=== PATIENT | female | born 1995 | race Hispanic/Latino ===

== ENCOUNTER 2021-11-25 19:49 | Inpatient (IN) | payer SELFPAY ==
[~2021-11-25] VITALS: Ht 147.3 cm; Wt 53.1 kg
[2021-11-25] MEDS ORDERED: MORPHINE 4 MG SYG IVP ONE (21:30)
[2021-11-25] MEDS ORDERED: CEFAZOLIN SODIUM 1 GM VIAL IVP SCH (21:30)
[2021-11-25] MEDS ORDERED: 0.9%NACL 1000ML 1,000 ML IV ONE (21:30)
[2021-11-25] MEDS ORDERED: ONDANSETRON 4MG INJ IVP ONE (21:30)
[2021-11-25] MEDS ORDERED: TETANUS/DIPHTHERIA TOXOID [ADULT] 0.5 ML VIAL IM ONE (22:00)
[2021-11-25 22:04] LABS: BASOPHILS % (AUTO) 0.6 % (0.0-5.0); EOSINOPHILS % (AUTO) 0.7 % (0.0-8.0); HEMATOCRIT 37.3 % (36-48); LYMPHOCYTES % (AUTO) 20.8 % (21.0-51.0); MEAN CORPUSCULAR HEMOGLOBIN 30.2 pg (27.0-33.0); MEAN CORPUSCULAR HGB CONC 33.8 g/dL (32.0-36.0); MEAN CORPUSCULAR VOLUME 89.4 fL (79-99); MONOCYTES % (AUTO) 14.9 % (3.0-13.0); NEUTROPHILS % (AUTO) 62.6 % (40.0-77.0); PLATELET COUNT (AUTO) 358 K/uL (130-400); RED BLOOD CELL COUNT(AUTO) 4.17 MIL/uL (4.00-5.50); RED CELL DISTRIBUTION WIDTH 12.5 % (11.0-15.5); WHITE BLOOD COUNT (AUTO) 10.8 K/uL (4.8-10.8)
[2021-11-25 22:20] LABS: BILIRUBIN,TOTAL 0.7 mg/dL (0.2-1.0); CREATININE 0.6 mg/dL (0.5-1.5); TOTAL PROTEIN, SERUM 7.8 g/dL (6.0-8.3)
[2021-11-25 22:27] LABS: POTASSIUM 2.9 mmol/L (3.5-5.1)
[2021-11-26] VITALS (22 sets, daily range): BP systolic 101–145; BP diastolic 54–74
[2021-11-26] MEDS ORDERED: ACETAMINOPHEN 325 MG TAB PO PRN ×2
[2021-11-26] MEDS ORDERED: ONDANSETRON 4MG INJ IV PRN
[2021-11-26 02:45] LABS: APPEARANCE,URINE Clear (CLEAR); BILIRUBIN,URINE Negative (NEGATIVE); COLOR,URINE Yellow (YELLOW); GLUCOSE, URINE (UA) Negative (NEGATIVE); KETONES,URINE 40 mg/dL (NEGATIVE); LEUKOCYTE ESTERASE ,URINE Negative (NEGATIVE); NITRATE,URINE Negative (NEGATIVE); OCCULT BLOOD,URINE Negative (NEGATIVE); PROTEIN,URINE Negative (NEGATIVE); UROBILINOGEN,URINE 0.2 mg/dL (0.2-1.0)
[2021-11-26 02:47] LABS: HCG,QUAL RESULT NEGATIVE (NEGATIVE)
[2021-11-26] MEDS: MORPHINE 2 MG SYG IV PRN ×2 (03:13→11:59)
[2021-11-26] MEDS ORDERED: POTASSIUM CHLORIDE 10% ELIXIR 20 MEQ/15 ML UDCUP PO PRN (05:00)
[2021-11-26] MEDS ORDERED: KCL 20 MEQ ERTAB PO PRN (05:00)
[2021-11-26 06:10] LABS: BASOPHILS % (AUTO) 0.5 % (0.0-5.0); EOSINOPHILS % (AUTO) 0.6 % (0.0-8.0); HEMATOCRIT 34.3 % (36-48); LYMPHOCYTES % (AUTO) 21.1 % (21.0-51.0); MEAN CORPUSCULAR HEMOGLOBIN 30.3 pg (27.0-33.0); MEAN CORPUSCULAR HGB CONC 33.5 g/dL (32.0-36.0); MEAN CORPUSCULAR VOLUME 90.3 fL (79-99); MONOCYTES % (AUTO) 12.8 % (3.0-13.0); NEUTROPHILS % (AUTO) 64.6 % (40.0-77.0); PLATELET COUNT (AUTO) 288 K/uL (130-400); RED CELL DISTRIBUTION WIDTH 12.4 % (11.0-15.5); WHITE BLOOD COUNT (AUTO) 11.2 K/uL (4.8-10.8)
[2021-11-26 06:21] LABS: INR 1.06 (0.85-1.15); PROTHROMBIN TIME 11.5 SEC (9.6-11.6)
[2021-11-26 06:22] LABS: PARTIAL THROMBOPLASTIN TIME 27.5 SEC (26.3-35.5)
[2021-11-26 06:37] LABS: ALBUMIN 3.5 g/dL (3.5-5.0); CREATININE 0.6 mg/dL (0.5-1.5); POTASSIUM 3.3 mmol/L (3.5-5.1); TOTAL PROTEIN, SERUM 6.8 g/dL (6.0-8.3)
[2021-11-26] MEDS: LIDOCAINE HCL-MPF 1% 2ML VIAL IV PRN ×2 (06:48→18:49)
[2021-11-26] MEDS: POTASSIUM CHLORIDE 20MEQ/100ML 100 ML IV PRN ×2 (06:49→18:48)
[2021-11-26] MEDS: FAMOTIDINE 20MG VIAL IV SCH ×2 (08:07→20:34)
[2021-11-26] MEDS ORDERED: ROCURONIUM 10MG/1ML SYR 10 MG/ML ML ONE (15:43)
[2021-11-26] MEDS ORDERED: LIDOCAINE PF 100MG/5ML (2%) SYRINGE 5ML ONE (15:43)
[2021-11-26] MEDS ORDERED: SUCCINYLCHOLINE CHLORIDE 20 MG/ML 10 ML VIAL ONE (15:43)
[2021-11-26] MEDS ORDERED: MIDAZOLAM HCL 1 MG/ML 2ML VIAL ONE (15:43)
[2021-11-26] MEDS ORDERED: FENTANYL CITRATE PF 50 MCG/1 ML 2ML VIAL ONE (15:43)
[2021-11-26] MEDS ORDERED: PROPOFOL 10 MG/ML 20ML VIAL IV ONE (15:43)
[2021-11-26] MEDS ORDERED: CEFAZOLIN SODIUM 2 GM VIAL IV ONE (16:00)
[2021-11-26] MEDS ORDERED: ROPIVACAINE 0.5% 5MG/ML 30ML IJ ONE (16:48)
[2021-11-26] MEDS ORDERED: NEOSTIGMINE 5MG/5ML SYR IV ONE (17:07)
[2021-11-26] MEDS ORDERED: GLYCOPYRROLATE 1 MG/5 ML SYRINGE ONE (17:07)
[2021-11-27] MEDS: MORPHINE 2 MG SYG IV PRN (02:53)
[2021-11-27] MEDS ORDERED: KETOROLAC 15MG/ML VIAL (15MG/ML) ONE (03:30)
[2021-11-27 03:53] LABS: BASOPHILS % (AUTO) 0.4 % (0.0-5.0); EOSINOPHILS % (AUTO) 0.7 % (0.0-8.0); HEMATOCRIT 33.8 % (36-48); LYMPHOCYTES % (AUTO) 19.4 % (21.0-51.0); MEAN CORPUSCULAR HEMOGLOBIN 29.3 pg (27.0-33.0); MEAN CORPUSCULAR HGB CONC 33.1 g/dL (32.0-36.0); MEAN CORPUSCULAR VOLUME 88.5 fL (79-99); MONOCYTES % (AUTO) 10.5 % (3.0-13.0); NEUTROPHILS % (AUTO) 68.7 % (40.0-77.0); PLATELET COUNT (AUTO) 297 K/uL (130-400); RED BLOOD CELL COUNT(AUTO) 3.82 MIL/uL (4.00-5.50); RED CELL DISTRIBUTION WIDTH 12.4 % (11.0-15.5); WHITE BLOOD COUNT (AUTO) 12.3 K/uL (4.8-10.8)
[2021-11-27 04:03] LABS: ALBUMIN 3.4 g/dL (3.5-5.0); CREATININE 0.6 mg/dL (0.5-1.5); POTASSIUM 3.6 mmol/L (3.5-5.1)
[2021-11-27] MEDS: ACETAMINOPHEN WITH CODEINE 1 TAB TAB PO PRN ×4 (04:25→20:47)
[2021-11-27 04:30] VITALS: BP 109/62
[2021-11-27] MEDS ORDERED: MORPHINE 4 MG SYG ONE (05:37)
[2021-11-27] MEDS ORDERED: MORPHINE 4 MG SYG IVP PRN (06:00)
[2021-11-27 08:01] VITALS: BP 109/68
[2021-11-27 11:03] VITALS: BP 123/76
[2021-11-27] MEDS: FAMOTIDINE 20MG VIAL IV SCH ×2 (11:41→20:46)
[2021-11-27] MEDS: IBUPROFEN 600 MG TABLET PO SCH ×4 (11:42→23:09)
[2021-11-27 16:35] VITALS: BP 120/69
[2021-11-27] MEDS: KETOROLAC 15MG/ML VIAL (15MG/ML) IV PRN (16:55)
[2021-11-27 20:33] VITALS: BP 107/71
[2021-11-27] MEDS: DOCUSATE SODIUM 100 MG CAP PO SCH (20:46)
[2021-11-27 23:37] VITALS: BP 136/78
[2021-11-28] MEDS: IBUPROFEN 600 MG TABLET PO SCH ×4 (03:52→15:30)
[2021-11-28 03:53] VITALS: BP 120/76
[2021-11-28 08:00] VITALS: BP 121/72
[2021-11-28] MEDS: ACETAMINOPHEN WITH CODEINE 1 TAB TAB PO PRN ×2 (08:07→17:39)
[2021-11-28] MEDS ORDERED: FAMOTIDINE 20MG TAB PO SCH (09:00)
[2021-11-28] MEDS: KETOROLAC 15MG/ML VIAL (15MG/ML) IV PRN (10:32)
[2021-11-28] MEDS: DOCUSATE SODIUM 100 MG CAP PO SCH (10:34)
[2021-11-28 11:45] VITALS: BP 112/67
[2021-11-28 16:00] VITALS: BP 124/71
== END 2021-11-28 19:10 | disposition home or self-care (01) | DRG 494 ==
LOC: EDH 19:49 → EDHIP 19:50 → 4AH 11-26 01:48
PROVIDERS: ADMIT Hospitalist; ATTEND Hospitalist
PROC: 0QSG35Z Reposition Right Tibia with External Fixation Device, Percutaneous Approach (ICD-10-PCS; principal; 2021-11-26 15:41)
DX: S82.51XA Displaced fracture of medial malleolus of right tibia, initial encounter for closed fracture (principal); E87.6 Hypokalemia; Z20.822 Contact with and (suspected) exposure to COVID-19; X58.XXXA Exposure to other specified factors, initial encounter; Y93.89 Activity, other specified; Y92.89 Other specified places as the place of occurrence of the external cause; Y99.8 Other external cause status
CPT/HCPCS: 36415; 72100; 73610; 73630; 73700; 80053; 81003; 81025; 84703; 85025; 85610; 85730; 86850; 86900; 86901; 87635; 90714; 97039; C9803; G0378; J0330; J0690; J1885; J2001; J2250; J2270; J2405; J2704; J2710; J2795; J3010; J3480; J3490; J7030